=== PATIENT | male | born 1950 | race Caucasian/White ===

== ENCOUNTER 2019-02-27 09:36 | Inpatient (IN) | payer OTHER ==
[~2019-02-27] VITALS: Ht 165.1 cm; Wt 82.0 kg
[2019-02-27] VITALS (29 sets, daily range): BP systolic 78–161; BP diastolic 38–86; PULSE 56–90; RESP 12–21; Ht 165.1 cm; Wt 82.0 kg
[~2019-02-27 09:36] MED LIST: AMLO-147 PO; ASPI-831 PO; NEBI5TAB9 PO; PITA1TAB PO; TAMS0.4C2 PO; VALS1TAB82 PO; VANCOMYCIN 1 GM 250 ML IVPB SCH
[2019-02-27] MEDS ORDERED: NEBI10TA2 PO (10:30)
[2019-02-27] MEDS ORDERED: PITA4TAB PO (10:31)
[2019-02-27] MEDS ORDERED: IRBE1TAB35 PO (10:41)
[2019-02-27] MEDS ORDERED: ASPI81TA52 PO (10:42)
[2019-02-27] MEDS ORDERED: PANT40TA3 PO (10:42)
[2019-02-27] MEDS ORDERED: TAMS-14 PO (10:42)
[2019-02-27] MEDS ORDERED: CA CHLORIDE (GM) 10% 10 ML INJ ONE (11:44)
[2019-02-27] MEDS ORDERED: SURGIFOAM POWDER 1 GM KIT ONE (11:44)
[2019-02-27] MEDS ORDERED: THROMBIN (BOVINE) 5,000 UNIT VIAL TP ONE ×2 (11:44→15:07)
[2019-02-27] MEDS ORDERED: BUPIVACAINE 0.5%/EPI (SDV) 10 ML INJ ONE (11:44)
[2019-02-27] MEDS ORDERED: CEFAZOLIN 1 GM INJ ONE (11:44)
[2019-02-27] MEDS ORDERED: GELATIN SIZE 100 SPONGE ONE (11:44)
[2019-02-27] MEDS ORDERED: HEPARIN 1000 UNITS/ML 10 ML INJ ONE (11:45)
--- NOTE | 2019-02-27 11:52 | PREAC ---
Date/Time of Note Date/Time of Note DATE: 02/27/19 TIME: 11:49 Anesthesia Eval and Record Evaluation Time Pre-Procedure Interview DATE: 02/27/19 TIME: 11:49 Age 68 Sex male NPO: 8 hrs Preoperative diagnosis L3-L4-L5-S1 lumbar stenosis Planned procedure L3-L4-L5-S1 Anterior Lumbar decompression Past Medical History Past Medical History: Includes Cardio: HTN, Dyslipidemia GI: GERD, Obesity Surgery & Anesthesia Issues No known issue Meds Anticoagulation: Yes Beta Delilah within 24 hr: Yes Reported Medications Aspirin (Low Dose Aspirin) 81 Mg Tablet.dr, 81 MG PO DAILY, #30 TAB 02/27/19 Pantoprazole* (Protonix*) 40 Mg Tablet.dr, 40 MG PO DAILY, TAB 02/27/19 Tamsulosin Hcl* (Flomax*) 0.4 Mg Cap.er.24h, 0.4 MG PO DAILY, CAP 02/27/19 Irbesartan-Hydrochlorothiazide (Irbesartan-Hydrochlorothiazide) 300-12.5 Mg Tab, 1 EACH PO DAILY, TAB 02/27/19 Pitavastatin Calcium (Livalo) 4 Mg Tablet, 4 MG PO DAILY, TAB 02/27/19 Nebivolol Hcl* (Bystolic*) 10 Mg Tablet, 10 MG PO DAILY, #30 TAB 02/27/19 Discontinued Reported Medications Pitavastatin Calcium (Livalo) 1 Mg Tablet, 1 MG PO DAILY, TAB 12/31/15 Aspirin (Aspirin) 81 Mg Chew, 81 MG PO DAILY, TAB.CHEW 12/31/15 Valsartan-Hydrochlorothiazide (Valsartan-HCTZ) 320-25 Mg Tablet, 1 TAB PO DAILY, #30 TAB 12/31/15 Tamsulosin Hcl* (Tamsulosin Hcl*) 0.4 Mg Cap.er.24h, 0.4 MG PO HS, CAP 12/30/15 Nebivolol* (Bystolic*) 5 Mg Tab, 5 MG PO DAILY, #30 TAB 12/30/15 Amlodipine Besylate* (Amlodipine Besylate*) 10 Mg Tablet, 10 MG PO DAILY, #30 TAB 12/30/15 Current Medications Vancomycin HCl 250 ml @ 125 mls/hr PREOP IVPB Last administered on 02/27/19at 11:22; Admin Dose 125 MLS/HR; Start 5/13/19 at 06:00; Stop 02/27/19 at 16:00 Meds reviewed: Yes Allergies Coded Allergies: Penicillins (Verified Allergy, Unknown, SWELLING , 02/27/19) Allergies Reviewed: Yes Labs/Studies Labs Reviewed: Reviewed by anesthesiologist Blood Bank Test 02/27/19 11:05 Blood Product Summary Counts test: N/A Studies: ECG Pre-procedure Exam Last vitals Vital Signs Date Temp Pulse Resp B/P (MAP) Pulse Ox O2 O2 Flow FiO2 Time Delivery Rate 02/27/19 98.1 56 16 161/86 96 Room Air 11:35 (111) Airway: Adequate mouth opening, Adequate thyromental dist Mallampati: Mallampati II Teeth: Normal Lung: Normal Heart: Normal ASA Physical Status ASA physical status: 3 Emergency: None Planned Anesthetic General/MAC: ETT Planned Pain Management Parenteral pain med Pre-operative Attestations Prior to commencing anesthesia and surgery, the patient was re-evaluated, there was verification of: *The patient's identity *The results of appropriate recent lab work and preoperative vital signs *The above evaluation not changing prior to induction *Anesthetic plan, risk benefits, alternative and complications discussed with patient/family; questions answered; patient/family understands, accepts and wishes to proceed. JORI GARCIA MD February 27, 2019 11:52
[2019-02-27] MEDS ORDERED: MIDAZOLAM 1 MG/ML 2 ML INJ ONE (12:21)
[2019-02-27] MEDS ORDERED: VANCOMYCIN 1 GM INJ ONE (12:21)
[2019-02-27] MEDS ORDERED: ROCURONIUM 50 MG INJ ONE (12:24)
[2019-02-27] MEDS ORDERED: ETOMIDATE 20 MG INJ ONE (12:24)
[2019-02-27] MEDS ORDERED: LIDOCAINE 2% (SDV) 5 ML INJ ONE (12:24)
[2019-02-27] MEDS ORDERED: PROPOFOL 20 ML ONE (12:24)
--- NOTE | 2019-02-27 12:37 | HPN ---
Date/Time of Note Date/Time of Note DATE: 02/27/19 TIME: 12:37 Interval H&P Admission Note Pt. seen H&P reviewed: No system changes ERIKA LE MD February 27, 2019 12:37
[2019-02-27] MEDS ORDERED: BISACODYL 10 MG SUPP PR PRN (13:00)
[2019-02-27] MEDS ORDERED: ONDANSETRON 4 MG INJ IV PRN ×2 (13:00→17:30)
[2019-02-27] MEDS ORDERED: DIPHENHYDRAMINE 50 MG INJ IV PRN ×2 (13:00→17:30)
[2019-02-27] MEDS ORDERED: NALOXONE (0.4 MG/ML) INJ IV PRN (13:00)
[2019-02-27] MEDS ORDERED: hydrALAzine 20 MG INJ ONE (13:40)
[2019-02-27] MEDS ORDERED: PHENYLephrine 10 MG INJ ONE (15:49)
[2019-02-27] MEDS ORDERED: ONDANSETRON 4 MG INJ ONE (16:53)
[2019-02-27] MEDS ORDERED: METOCLOPRAMIDE 10 MG INJ ONE (16:53)
--- NOTE | 2019-02-27 17:28 | PAC ---
Date/Time of Note Date/Time of Note DATE: 02/27/19 TIME: 17:28 Post-Anesthesia Notes Post-Anesthesia Note Last documented vital signs Vital Signs Date Temp Pulse Resp B/P (MAP) Pulse Ox O2 O2 Flow FiO2 Time Delivery Rate 02/27/19 98.1 56 16 161/86 96 Room Air 11:35 (111) Activity: WNL Respiratory function: WNL Cardiovascular function: WNL Mental status: Baseline Pain reasonably controlled: Yes Hydration appropriate: Yes Nausea/Vomiting absent: Yes Comments BP:118/67, P:88, Spo2:100%, T:98,8 JORI GARCIA MD February 27, 2019 17:28
[2019-02-27] MEDS ORDERED: HYDROmorphONE 1 MG/5 ML IV SYRINGE IV PRN ×2 (17:30)
[2019-02-27] MEDS ORDERED: METOCLOPRAMIDE 10 MG INJ IV PRN (17:30)
[2019-02-27] MEDS ORDERED: LABETALOL HCL 20MG INJ IV PRN (17:30)
[2019-02-27] MEDS ORDERED: hydrALAzine 20 MG INJ IV PRN (17:30)
[2019-02-27] MEDS ORDERED: MEPERIDINE 25 MG INJ IV PRN (17:30)
[2019-02-27] MEDS: HYDROmorphONE 0.2 MG/ML PCA IV SCH (17:37)
--- NOTE | 2019-02-27 17:39 | SIPON ---
Date/Time of Note Date/Time of Note DATE: 02/27/19 TIME: 17:37 Operative Report Preoperative Diagnosis lumbar scoli Postoperative Diagnosis lumbar scoli Operation/Procedure Performed L3-S1 ALIF Surgeon see signature line catering administrative assistant co-surgeon: axel Anesthesia: general Estimated blood loss: 250 - 300 ml's Transfusion Required none Specimen disk Grafts/Implants cage and screws Complications none ERIKA LE MD February 27, 2019 17:39
[2019-02-27] MEDS: FENTAnyl 50 MCG/ML VIAL IV PRN ×4 (17:46→18:15)
[2019-02-27] MEDS ORDERED: ALBUMIN HUMAN 5% 250 ML IV ONE ×2 (18:00→18:30)
--- NOTE | 2019-02-27 19:02 | OPR ---
DATE OF OPERATION: 02/27/2019 PREOPERATIVE DIAGNOSES: 1. Degenerative lumbar scoliosis with disk disease, stenosis and radiculopathy at L3 to L4, L4 to L5 and L5 to S1. 2. Rudimentary S1 to S2 disk. POSTOPERATIVE DIAGNOSES: 1. Degenerative lumbar scoliosis with disk disease, stenosis and radiculopathy at L3 to L4, L4 to L5 and L5 to S1. 2. Rudimentary S1 to S2 disk. PROCEDURES: 1. Anterior lumbar interbody fusion at L3 to L4, L4 to L5, L5 to S1. 2. Placement of intervertebral mechanical device at L3 to L4, L4 to L5 and L5 to S1. 3. Anterior hardware placement at L3 to L4, L4 to L5 and L5 to S1. 4. Use of allograft. 5. Placement of NuShield device. 6. Intraoperative neuromonitoring. 7. Use of C-arm fluoroscopy with interpretation without radiologist present. PRIMARY SURGEON: Martinez Valencia MD COSURGEON: Valerio Son MD NEED FOR COSURGEON: A co-surgeon was required in order to retract the neurovascular elements. IMPLANTS: 1. Kyocera Tesera 38 x 30 mm footprint, 13 mm x 7-degree lordosis at L3 to L4, 11 mm x 7-degree lord osis at L4 to L5 and 11 mm with 12-degree lordosis at L5 to S1, 25 mm screws at all levels. 2. Biosphere. 3. NuShield. FINDINGS: Neuromonitoring at the start of the case revealed right L3 amplitude down 30%, right L4 do wn 40%, right L5 down 40%. At the end of the case, nerve signals returned to normal. The patient pardo s significant degenerative scoliosis with a rudimentary disk at the S1 to S2 level. ESTIMATED BLOOD LOSS: 200 mL. DRAINS: None. SPECIMENS: L3 to L4 and L5 to S1 disk. COMPLICATIONS OF PROCEDURES: None. ANESTHESIOLOGIST: Orestes Perea MD TYPE OF ANESTHESIA: General. INDICATIONS FOR PROCEDURE: This 68-year-old gentleman who had previously undergone lumbar decompress ion. He has a degenerative scoliosis with right leg pain and a foot drop. He had coronal deformity as well as sagittal deformity. Given this, it was recommended that he undergo the above procedure. Preoperatively, we discussed risks, benefits and alternatives. He understood and wished to proceed. DESCRIPTION OF PROCEDURE IN DETAIL: The patient was identified in the preoperative holding area, was given vancomycin antibiotics in the operating room where he was successfully placed under general an esthesia. Neuromonitoring leads were placed. Sequential compressive devices were applied. Lennon ca theter was placed. Remote intraoperative neuromonitoring was performed by Dr. Valles from 11:30 u ntil 16:50 to include SSEP, MEP and EMG performed by [employer]. The patient was placed on the operating table in supine position. All bony prominences were well padded. The abdomen was prepped , draped in usual sterile fashion. Dr. Son performed the approach to the spine which he will d ictate separately. Once we identified the spinal levels, I placed a bent spinal needle to confirm th e correct levels by taking the AP and lateral film. Once this was done, I performed radical diskecto mies at L3 to L4, L4 to L5 and L5 to S1 using curettes, Kerrison punches and pituitary rongeurs. I p repared the endplates at each level. Once this was done, I placed trial at each level and chose the appropriate graft height. I then took the titanium cage within which I placed allograft and I impact ed an intervertebral biomechanical device at L3 to L4, L4 to L5 and L5 to S1 to complete the anterior lumbar interbody fusion at all 3 levels. I then placed anterior plate with screws to complete the a nterior hardware at L3 to L4, L4 to L5 and L5 to S1. Once this was done, all nerve signals returned to normal. I was happy with the alignment of the spine. The wound was irrigated. The NuShield adolph ce was applied and Dr. Son proceeded to close the wound in layers, which he will dictate ngoc santamaria. Once the closure was completed, 4-quadrant abdominal x-rays were obtained to confirm that ther e was no foreign body left behind. Lap, sponge and instrument counts were correct x2. There were no apparent complications during the procedure. The patient will be admitted to the orthopedic adams for routine postoperative care to include pain co ntrol, neurovascular checks, antibiotics and physical therapy. We will obtain a postoperative CT sca n and the patient will return to the operating room on 02/28/2019 for stage II. Dictated By: MARTINEZ APONTE/PINKY Conf#: [id number] DID#: [id number] CC: BLAKE FLAHERTY MD;*End*
--- NOTE | 2019-02-27 19:23 | OPR ---
DATE OF OPERATION: PREOPERATIVE DIAGNOSIS: Degenerative disk disease, lumbosacral spine. POSTOPERATIVE DIAGNOSIS: Degenerative disk disease, lumbosacral spine. PROCEDURES: 1. Anterior retroperitoneal exposure, interbody fusion, L3 to L4. 2. Anterior retroperitoneal exposure, interbody fusion, L4 to L5. 3. Anterior retroperitoneal exposure, interbody fusion, L5 to S1. SURGEON: Lorelei Son MD ANESTHESIA: General. ESTIMATED BLOOD LOSS: 200 mL. COSURGEON: Martinez Valencia MD CONSENT: Risks, benefits, complications, alternative therapies, high-risk nature of the operation we re fully explained to the patient and the family and consent was obtained. OPERATIVE TECHNIQUE: The patient was placed in supine position, prepped and draped in usual sterile fashion. Time-out was called. I made a 10 cm incision, left paramedian longitudinal incision was ta tennille down to subcutaneous tissue which was then opened using electrocautery. Left anterior rectus she ath was opened in the direction of the wound. Posterior rectus sheath was incised 5 cm. Bookwalter retractor was placed retracting the bowel contents to the right, left rectus muscle to the left. I d issected left common iliac artery and vein, external iliac artery and vein. The lowest segmental art colette and vein on the left side were ligated using titanium clips. The left iliolumbar vein was ligate d using 2-0 silk suture and titanium clips. Exposure for L3 to L4, L4 to L5 and L5 to S1 was obtaine d by retracting the vena cava, aorta, left common iliac artery and vein to the right. We proceeded w ith diskectomy and placement of the new cage. Please refer to Dr. Valencia's dictation for the deta ils of that operation. After all x-rays were satisfactorily read by Dr. Valencia, needle count and sponge count was correct. The wound was irrigated using antibiotic solution. Posterior rectus sheat h was closed using 0 Vicryl suture in running fashion. Anterior rectus sheath was closed using a #1 Vicryl suture in a running fashion with interrupted sutures in the middle. The wound was irrigated a gain and closed in 2 layers of 2-0 Vicryl suture for subcutaneous, Steri-Strips for the skin. The pa tient tolerated procedure well. Dictated By: LORELEI SON MD FM/NTS Conf#: [id number] DID#: [id number] CC: MARTINEZ VALENCIA MD; BLAKE FLAHERTY MD;*[facility]*
[2019-02-27] MEDS: D5W-0.45 NACL + KCL 20 MEQ 1,000 ML IV SCH ×2 (22:28→22:37)
[2019-02-27] MEDS: VANCOMYCIN 1 GM (PMX) 250 ML IVPB SCH (22:29)
[2019-02-28] VITALS (21 sets, daily range): BP systolic 114–174; BP diastolic 49–98; PULSE 86–97; RESP 14–19
[2019-02-28] MEDS ORDERED: ROCURONIUM 50 MG INJ ONE (06:40)
[2019-02-28] MEDS ORDERED: PHENYLephrine (100 MCG/ML) 10ML SYG ONE (06:40)
[2019-02-28] MEDS ORDERED: LIDOCAINE 100 MG SYRINGE ONE (06:40)
[2019-02-28] MEDS ORDERED: SUCCINYLCHOLINE CHLORIDE 100 MG/5 ML SYG IV ONE (06:40)
[2019-02-28] MEDS ORDERED: PROPOFOL 20 ML ONE (06:40)
[2019-02-28] MEDS ORDERED: MIDAZOLAM 1 MG/ML 2 ML INJ ONE (06:41)
[2019-02-28] MEDS ORDERED: THROMBIN 20,000 UNIT VIAL ONE (06:45)
[2019-02-28] MEDS ORDERED: SURGIFOAM POWDER 1 GM KIT ONE (06:45)
[2019-02-28] MEDS ORDERED: CA CHLORIDE 10% 10 ML SYRINGE ONE (06:46)
[2019-02-28] MEDS ORDERED: BUPIVACAINE 0.5%/EPI (SDV) 30 ML INJ ONE ×2 (06:46)
[2019-02-28] MEDS ORDERED: BUPIVACAINE 0.25% (MPF) 30 ML INJ ONE (06:46)
[2019-02-28] MEDS ORDERED: POLYMYXIN/BACITRACIN 1L IRRIG ONE ×2 (06:46→07:10)
[2019-02-28] MEDS ORDERED: PROPOFOL 100 ML IV ONE (07:00)
[2019-02-28] MEDS ORDERED: THROMBIN 5000 UNIT VIAL ONE (07:00)
--- NOTE | 2019-02-28 07:00 | PREAC ---
Date/Time of Note Date/Time of Note DATE: 02/28/19 TIME: 06:53 Anesthesia Eval and Record Evaluation Time Pre-Procedure Interview DATE: 02/28/19 TIME: 06:53 Age 68 Sex male NPO: 8 hrs Preoperative diagnosis Lumbar DJD Planned procedure Posterior Lumbar Fusion Past Medical History Past Medical History: Includes Cardio: HTN Surgery & Anesthesia Issues No known issue Meds Anticoagulation: No Beta Delilah within 24 hr: Yes Reported Medications Aspirin (Low Dose Aspirin) 81 Mg Tablet.dr, 81 MG PO DAILY, #30 TAB 02/27/19 Pantoprazole* (Protonix*) 40 Mg Tablet.dr, 40 MG PO DAILY, TAB 02/27/19 Tamsulosin Hcl* (Flomax*) 0.4 Mg Cap.er.24h, 0.4 MG PO DAILY, CAP 02/27/19 Irbesartan-Hydrochlorothiazide (Irbesartan-Hydrochlorothiazide) 300-12.5 Mg Tab, 1 EACH PO DAILY, TAB 02/27/19 Pitavastatin Calcium (Livalo) 4 Mg Tablet, 4 MG PO DAILY, TAB 02/27/19 Nebivolol Hcl* (Bystolic*) 10 Mg Tablet, 10 MG PO DAILY, #30 TAB 02/27/19 Discontinued Reported Medications Pitavastatin Calcium (Livalo) 1 Mg Tablet, 1 MG PO DAILY, TAB 12/31/15 Aspirin (Aspirin) 81 Mg Chew, 81 MG PO DAILY, TAB.CHEW 12/31/15 Valsartan-Hydrochlorothiazide (Valsartan-HCTZ) 320-25 Mg Tablet, 1 TAB PO DAILY, #30 TAB 12/31/15 Tamsulosin Hcl* (Tamsulosin Hcl*) 0.4 Mg Cap.er.24h, 0.4 MG PO HS, CAP 12/30/15 Nebivolol* (Bystolic*) 5 Mg Tab, 5 MG PO DAILY, #30 TAB 12/30/15 Amlodipine Besylate* (Amlodipine Besylate*) 10 Mg Tablet, 10 MG PO DAILY, #30 TAB 12/30/15 Current Medications Potassium Chloride/Dextrose/ Sod Cl 1,000 ml @ 100 mls/hr Q10H IV Last administered on 02/27/19at 22:28; Admin Dose 100 MLS/HR; Start 02/27/19 at 12:37 Vancomycin HCl 250 ml @ 125 mls/hr Q12H IVPB Last administered on 02/27/19at 22:29; Admin Dose 125 MLS/HR; Start 02/27/19 at 23:00; Stop 02/28/19 at 12:59 Ondansetron HCl (Zofran Inj) 4 mg Q6H PRN IV NAUSEA/VOMITING; Start 02/27/19 at 13:00 Bisacodyl (Dulcolax Supp) 10 mg DAILY PRN RI .CONSTIPATION; Start 02/27/19 at 13:00 Diphenhydramine HCl (Benadryl) 25 mg Q6H PRN IV .ITCHING; Start 02/27/19 at 13:00 Naloxone HCl (Narcan) 0.2 mg Q2M PRN IV .RR 8 BREATHS/MIN OR LESS; Start 02/27/19 at 13:00 Hydromorphone HCl (Dilaudid ANALYTICS MANAGER) ANALYTICS MANAGER to be started in PACU Q4PCA IV Last administered on 02/27/19at 17:37; Admin Dose 6 MG; Start 02/27/19 at 13:00 Meds reviewed: Yes Allergies Coded Allergies: Penicillins (Verified Allergy, Unknown, SWELLING , 02/27/19) Allergies Reviewed: Yes Labs/Studies Labs Reviewed: Reviewed by anesthesiologist Result Diagram: 02/28/19 0507 02/28/19 0507 Laboratory Tests 02/28/19 05:07 Blood Bank Test 02/27/19 11:03 Antibody Screen NEGATIVE Blood Product Summary Counts Blood Type O POSITIVE Crossmatch Red Blood Cells test: N/A Pre-procedure Exam Last vitals Vital Signs Date Temp Pulse Resp B/P (MAP) Pulse Ox O2 O2 Flow FiO2 Time Delivery Rate 02/28/19 99.0 96 18 120/62 97 Nasal 2.0 06:25 (81) Cannula Airway: Adequate mouth opening Mallampati: Mallampati II Teeth: Normal Lung: Normal Heart: Normal ASA Physical Status ASA physical status: 2 Emergency: None Planned Anesthetic General/MAC: ETT Pre-operative Attestations Prior to commencing anesthesia and surgery, the patient was re-evaluated, there was verification of: *The patient's identity *The results of appropriate recent lab work and preoperative vital signs *The above evaluation not changing prior to induction *Anesthetic plan, risk benefits, alternative and complications discussed with patient/family; questions answered; patient/family understands, accepts and wishes to proceed. TUSHAR URBANO MD February 28, 2019 07:00
[2019-02-28] MEDS ORDERED: VANCOMYCIN 1 GM (PMX) 250 ML ONE (07:51)
[2019-02-28] MEDS: D5W-0.45 NACL + KCL 20 MEQ 1,000 ML IV SCH (08:37)
[2019-02-28] MEDS ORDERED: D5W-0.45 NACL + KCL 20 MEQ 1,000 ML IV SCH (10:52)
--- NOTE | 2019-02-28 10:52 | SIPON ---
Date/Time of Note Date/Time of Note DATE: 02/28/19 TIME: 10:50 Operative Report Preoperative Diagnosis Degenerative scoliosis Postoperative Diagnosis Degenerative scoliosis Operation/Procedure Performed Lumbar fusion Surgeon see signature line assistant shift supervisor none Anesthesia: general Estimated blood loss: 10 - 50 ml's Transfusion Required none Specimen None Grafts/Implants RTI screws Complications none ERIKA LE MD February 28, 2019 10:51
--- NOTE | 2019-02-28 10:52 | PAC ---
Date/Time of Note Date/Time of Note DATE: 02/28/19 TIME: 10:52 Post-Anesthesia Notes Post-Anesthesia Note Last documented vital signs Vital Signs Date Temp Pulse Resp B/P (MAP) Pulse Ox O2 O2 Flow FiO2 Time Delivery Rate 02/28/19 99.0 96 18 120/62 97 Nasal 2.0 06:25 (81) Cannula Activity: WNL Respiratory function: WNL Cardiovascular function: WNL Mental status: Baseline Pain reasonably controlled: Yes Hydration appropriate: Yes Nausea/Vomiting absent: Yes TUSHAR URBANO MD February 28, 2019 10:52
[2019-02-28] MEDS ORDERED: DIPHENHYDRAMINE 50 MG INJ IV PRN (11:00)
[2019-02-28] MEDS ORDERED: CEPASTAT LOZENGE MT PRN (11:00)
[2019-02-28] MEDS ORDERED: HYDROmorphONE 0.2 MG/ML PCA IV SCH (11:00)
[2019-02-28] MEDS ORDERED: NALOXONE (0.4 MG/ML) INJ IV PRN (11:00)
[2019-02-28] MEDS ORDERED: ONDANSETRON 4 MG INJ IV PRN ×2 (11:00)
[2019-02-28] MEDS ORDERED: HYDROmorphONE 1 MG/5 ML IV SYRINGE IV PRN (11:00)
[2019-02-28] MEDS ORDERED: BISACODYL 10 MG SUPP PR PRN (11:00)
[2019-02-28] MEDS ORDERED: CYCLOBENZAPRINE 10 MG TAB PO PRN (11:00)
[2019-02-28] MEDS ORDERED: DIPHENHYDRAMINE 25 MG CAP PO PRN (11:00)
[2019-02-28] MEDS ORDERED: KETOROLAC 30 MG INJ IV PRN (11:00)
[2019-02-28] MEDS: VANCOMYCIN 1 GM (PMX) 250 ML IVPB SCH ×2 (11:00→18:17)
[2019-02-28] MEDS ORDERED: ACETAMINOPHEN 325 MG TAB PO PRN (11:00)
[2019-02-28] MEDS: HYDROmorphONE 0.2 MG/ML PCA IV SCH (11:29)
[2019-02-28] MEDS ORDERED: NON-FORMULARY/PATIENT OWN MED (Irbesartan-Hydrochlorothiazide 1 EACH) PO SCH (13:30)
--- NOTE | 2019-02-28 13:34 | OPR ---
DATE OF OPERATION: 02/28/2019 PREOPERATIVE DIAGNOSIS: Degenerative lumbar scoliosis and stenosis status post ALIF, L3-L4, L4-L5, L 5-S1 with radiculopathy. POSTOPERATIVE DIAGNOSIS: Degenerative lumbar scoliosis and stenosis status post ALIF, L3-L4, L4-L5, L5-S1 with radiculopathy. OPERATION PERFORMED: 1. Posterior pedicle screw instrumentation at L3-L4 and L5-S1 bilaterally. 2. Posterolateral fusion L3-L4, L4-L5, L5-S1 bilaterally. 3. Use of C-arm fluoroscopy without radiologist present. 4. Use of navigation for placement of pedicle screws. 5. Intraoperative neuromonitoring. 6. Use of allograft. PRIMARY SURGEON: Matrinez Valencia MD ENVIRONMENTAL ADVISER: None. IMPLANTS: 1. RTI streamline MIS pedicle screws, 6.5 x 50 mm at L3-4-5 and 6.5 x 45 mm at S1 bilaterally. 2. Biosphere. FINDINGS: Neuromonitoring at start and at the end of the case were normal. The patient had a scolio tic curvature. ESTIMATED BLOOD LOSS: 50 mL. DRAINS: None. SPECIMENS: None. COMPLICATIONS OF PROCEDURES: None. ANESTHESIOLOGIST:. Chris Lockett MD TYPE OF ANESTHESIA: General. INDICATIONS FOR PROCEDURE: This is a 68-year-old gentleman who had previously undergone lumbar decom pression several years ago. He has degenerative scoliosis on 02/27/2019 underwent anterior lumbar in terbody fusion at L3-L4, L4-L5 and L5-S1 now presents for stage II. Given that he had significant im provement in the foot drop on the right side, I elected not to perform an open decompression during s tage II. This was discussed with the patient preoperatively. 1. The patient understood the risks and benefits and wished to proceed. DESCRIPTION OF PROCEDURE IN DETAIL: The patient was identified in the preoperative holding area, giv en vancomycin antibiotic, taken to the operating room, where he was successfully placed under general anesthesia. Neuromonitoring leads were placed, sequential compressive devices were applied. Intrao perative neuromonitoring was performed by Dr. Valles from 0615 hours to 1035 hours to include SSEP , MEP, and EMG performed by [employer]. The patient was placed in the operative table in prone position over a Luis Fernando frame. All bony prominences were padded. The back was then prepped and drap ed in the usual sterile fashion. I identified the incision site which I anesthetized with Marcaine a nd epinephrine. I placed two Schanz pins into the right posterior superior iliac spine and placed th e navigation jig attached to this. I then made parasagittal incisions from L3 to the sacrum. I then utilized both the C-arm fluoroscope and the navigation system for placement of the pedicle screws. Under navigation system, I identified the pedicle screws and used a drill to drill the hole for the p edicle screws. Once this was done, I placed bilateral pedicle screws at L3., L4, L5 and S1. Once th e pedicle screws were in place, I stimulated each of the screws and there was no evidence of cortical breach. I then passed a kanu percutaneously. I then passed a kanu, 80 mm on left, 85 mm on the right . I then placed the appropriate set screws and tightened the set screws per research test engine operator's specifica tions. The last screw to be tightened was the right S1 and upon doing so the tip of the screwdriver broke within the set screw. I removed the extended tabs bilaterally and examined the set screw at th is time. It appeared to be secure and therefore, I elected not to remove the tip of the screwdriver. I was concerned this would cause more damage. I then irrigated the wounds. I prepared the postero lateral gutter and took the allograft which I placed posterolaterally for posterolateral fusion bilat erally at L3-4, L4-5 and L5-S1. I then took final AP and lateral images and I was happy with the amrit cement of the hardware and alignment of the spine. The wound was irrigated and closed in layers. I closed deep fascia with #1 Vicryl stitch. I closed subcutaneous tissue with 2-0 Vicryl stitch. I th en placed a 4-0 Monocryl stitch over the Schanz pins. Dermabond was then applied. The patient was a wakened from anesthesia and taken to the recovery room in stable condition. Lap, sponge and instrume nt counts were correct x2. There were no apparent complications during the procedure. The patient will be admitted to the orthopedic adams for routine postoperative care to include pain co ntrol, generator checks, antibiotics, and physical therapy. Dictated By: MARTINEZ APONTE/PINKY Conf#: [id number] [facility]#: [id number]
[2019-02-28] MEDS: NEBIVOLOL 5 MG TAB PO SCH (13:53)
[2019-02-28] MEDS: PANTOPRAZOLE (EC) 40 MG TAB PO SCH (13:54)
[2019-02-28] MEDS ORDERED: MAGNESIUM SULFATE 2 GM/50 ML 50 ML IVPB ONE (15:00)
--- NOTE | 2019-02-28 15:22 | CONS ---
DATE OF ADMISSION: 02/27/2019 DATE OF CONSULTATION: TYPE OF CONSULTATION: Medical. Thank you, Dr. Valencia for asking me to participate in medical management of this patient. REASON FOR CONSULTATION: To manage the patient's hypertension, hyperlipidemia, prostatism. HISTORY OF PRESENT ILLNESS: This 68-year-old man was injured at work in 2015. Subsequent to his back injury, he underwent an L3 to S1 central decompressive laminectomy with right L4 to L5 microdiskectomy. That was on 12/31/2015. He was having right leg pain which improved after the surgery. However, he continued to have numbness and weakness in the right leg with right foot drop. He decided to undergo repeat surgery by Dr. Valencia which was done yesterday and today a 2-stage procedure. He had a lumbar fusion both anterior and posterior approach. The patient is now postop. He is back on the orthopedic floor and is awake and alert. He does have some low back pain which is being treated and seems under control. PAST MEDICAL HISTORY: Hypertension, hyperlipidemia, history of DVT in R leg after R knee arthroscopy in March ? April 2017 .He subsequently had a pulmonary embolism and was on Xarelto for 6 months . CURRENT MEDICATIONS: Include: 1. Tamsulosin 0.4 mg a day. 2. Pantoprazole 40 mg a day. 3. Livalo 4 mg a day. 4. Bystolic 10 mg a day. 5. Aspirin which was discontinued 1 week preoperatively. 6. Irbesartan and hydrochlorothiazide 300/12.5. PAST SURGICAL HISTORY: L3 to S1 central decompressive laminectomy with right L4 to L5 microdiskectomy, right knee surgery. SOCIAL HISTORY: He does not smoke nor drink alcohol. ALLERGIES: HE IS ALLERGIC TO PENICILLIN. PHYSICAL EXAMINATION: GENERAL: At this time reveals a well-developed man in no apparent distress. VITAL SIGNS: Pulse of 86, respirations 16, blood pressure 152/68, O2 saturation of 99% on 2-liter nasal cannula. HEENT: Head is normocephalic. Eyes: Extraocular muscles are intact. Nose and mouth are normal. NECK: Supple. No neck vein distention. LUNGS: Clear to auscultation. HEART: Regular rhythm. No murmurs, gallops or rubs. ABDOMEN: Soft. There is a fresh wound over the left anterior abdomen with fresh bandage. There is no drainage or bleeding. EXTREMITIES: No peripheral edema. The patient is able to move his right foot, previously had a right foot drop. IMPRESSION: This patient is doing well after a 2-stage surgery completed today. He is awake and alert. His abdominal and back pain seemed to be controlled on current medication. I will manage the patient's hypertension, hyperlipidemia, prostatism. He has a h/o of DVT of R leg and pulmonary embolism .This occurred after a R knee surgery in 2017 . I would consider a course of anticoagulants when it is hemodynamically safe from orthopedic standpoint . Acute renal failure due to dehydration , will hold ARB and diuretic for now . PLAN: 1. Resume some routine medications. 2. Check labs in the morning. 3. Postop anterior, posterior lumbar spine surgery protocol . 4. I will follow the patient along with you. Dictated By: LARA SUAZO MD ND/NTS Conf#: [id number] DID#: [id number] CC: BLAKE FLAHERTY MD; ERIKA VALENCIA MD;*End* MTDD
[2019-02-28] MEDS: SOD CHLORIDE 0.45% 1,000 ML IV SCH (15:26)
[2019-02-28] MEDS: DOCUSATE SODIUM 100 MG CAP PO SCH (20:23)
[2019-02-28] MEDS: TAMSULOSIN (SR) 0.4 MG CAP PO SCH (20:23)
[2019-03-01 00:20] VITALS: BP 123/59; PULSE 94; RESP 18
[2019-03-01] MEDS: SOD CHLORIDE 0.45% 1,000 ML IV SCH ×4 (03:16→21:27)
[2019-03-01] MEDS: VANCOMYCIN 1 GM (PMX) 250 ML IVPB SCH (05:51)
[2019-03-01 07:34] VITALS: BP 109/67; PULSE 80; RESP 18
--- NOTE | 2019-03-01 08:29 | CONS ---
Assessment/Plan Assessment/Plan Hospital Course (Demo Recall) 1. Rosas is now 1 day postop a two-stage anterior posterior lumbar spine surgery and fusion. He is awake and alert. He has coughed up some blood-tinged sputum this morning. He had a low-grade fever to 100.3 last evening. I will order a chest x-ray and some urine studies. 2. His blood pressure and laboratory tests are acceptable. 3. 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 I would consider starting him on antico agulants for thromboembolism prevention when it is hemodynamically safe from an orthopedic standpoint. Consultation Date/Type/Reason Admit Date/Time February 27, 2019 at 09:36 Initial Consult Date Date/Time of Note DATE: 03/01/19 TIME: 08:22 24 HR Interval Summary Free Text/Dictation Rosas is awake and alert this morning. He has coughed up some blood-tinged mucus. He denies shortness of breath. He did have a low-grade fever last evening of 100.3. Constitutional: no complaints, improved Exam/Review of Systems Exam Vitals Vital Signs Date Temp Pulse Resp B/P (MAP) Pulse Ox O2 O2 Flow FiO2 Time Delivery Rate 03/01/19 98.3 80 18 109/67 96 07:34 (81) 03/01/19 Nasal 2.0 00:20 Cannula Intake and Output 02/28/19 02/28/19 03/01/19 1515:00 23:00 07:00 IntakeIntake Total 2200 ml 850 ml 1250 ml OutputOutput Total 350 ml 1200 ml BalanceBalance 1850 ml 850 ml 50 ml Constitutional: alert, oriented, well developed Neck: supple, non-tender Respiratory: clear to auscultation, normal air movement Cardiovascular: regular rate and rhythm Gastrointestinal: soft Musculoskeletal: nl extremities to inspection Results Result Diagram: 03/01/19 0459 03/01/19 0459 Results 24hrs Laboratory Tests Test 03/01/19 04:59 03/01/19 07:28 White Blood Count 5.9 Red Blood Count 3.98 L Hemoglobin 11.3 L Hematocrit 35.1 L Mean Corpuscular Volume 88.2 Mean Corpuscular Hemoglobin 28.4 L Mean Corpuscular Hemoglobin Concent 32.2 Red Cell Distribution Width 14.9 H Platelet Count 119 L Mean Platelet Volume 10.9 H Immature Granulocytes % 0.300 Neutrophils % 78.5 H Lymphocytes % 11.7 L Monocytes % 8.5 Eosinophils % 0.7 Basophils % 0.3 Nucleated Red Blood Cells % 0.0 Immature Granulocytes # 0.020 Neutrophils # 4.6 Lymphocytes # 0.7 L Monocytes # 0.5 Eosinophils # 0.0 Basophils # 0.0 Nucleated Red Blood Cells # 0.0 Sodium Level 136 Potassium Level 4.2 Chloride Level 103 Carbon Dioxide Level 30 Anion Gap 3 L Blood Urea Nitrogen 15 Creatinine 1.52 H Est Glomerular Filtrat Rate mL/min 46 L Glucose Level 105 Calcium Level 7.6 L Magnesium Level 2.1 Lab Scanned Report REFERENCE LAB Medications Medication Current Medications Ondansetron HCl (Zofran Inj) 4 mg Q6H PRN IV NAUSEA/VOMITING Last administered on 02/28/19at 11:51; Admin Dose 4 MG; Start 02/27/19 at 13:00 Bisacodyl (Dulcolax Supp) 10 mg DAILY PRN CO .CONSTIPATION; Start 02/27/19 at 13:00 Naloxone HCl (Narcan) 0.2 mg Q2M PRN IV .RR 8 BREATHS/MIN OR LESS; Start 02/27/19 at 13:00 Hydromorphone HCl (Dilaudid BUTTON BREAKER) BUTTON BREAKER to be started in PACU Q4PCA IV Last administered on 02/28/19at 11:29; Admin Dose 6 MG; Start 02/27/19 at 13:00 Acetaminophen/ Hydrocodone Bitart ([place] (10/325)) 1 tab Q4H PRN PO .PAIN 1-5; Start 03/02/19 at 14:00 Acetaminophen/ Hydrocodone Bitart ([place] (10/325)) 2 tab Q4H PRN PO .PAIN 6-10; Start 03/02/19 at 14:00 Hydromorphone HCl (Dilaudid) 0.2 mg Q1H PRN IV .BREAKTHROUGH PAIN; Start 03/02/19 at 10:00 Ondansetron HCl (Zofran Inj) 4 mg Q6H PRN IV NAUSEA/VOMITING; Start 02/28/19 at 11:00 Bisacodyl (Dulcolax Supp) 10 mg DAILY PRN CO .CONSTIPATION; Start 02/28/19 at 11:00 Docusate Sodium (Colace) 100 mg BID PO Last administered on 02/28/19at 20:23; Admin Dose 100 MG; Start 02/28/19 at 21:00 Magnesium Hydroxide (Milk Of Mag) 30 ml HS PRN PO .CONSTIPATION/DYSPEPSIA; St art 02/28/19 at 11:00 Acetaminophen (Tylenol Tab) 650 mg Q4H PRN PO CHAVEZ OR TEMP GREATER THAN 101.3F; Start 02/28/19 at 11:00 Cyclobenzaprine HCl (Flexeril) 10 mg TID PRN PO .MUSCLE SPASMS; Start 02/28/19 at 11:00 Phenol (Cepastat Lozenge) 1 lozenge PRN PRN MT .SORE THROAT; Start 02/28/19 at 11:00 Diphenhydramine HCl (Benadryl) 25 mg Q6H PRN PO .ITCHING; Start 02/28/19 at 11:00 Diphenhydramine HCl (Benadryl) 25 mg Q6H PRN IV .ITCHING; Start 02/28/19 at 11:00 Naloxone HCl (Narcan) 0.2 mg Q2M PRN IV .RR 8 BREATHS/MIN OR LESS; Start 02/28/19 at 11:00 Hydromorphone HCl (Dilaudid BUTTON BREAKER) BUTTON BREAKER to be started in PACU Q4PCA IV ; Start 02/28/19 at 11:00; Stop 03/02/19 at 10:00 Miscellaneous Information 1. Hold BUTTON BREAKER at 1,000... BUTTON BREAKER IV ; Start 02/28/19 at 11:00 Acetaminophen/ Hydrocodone Bitart ([place] (10/325)) 2 tab ONCE ONCE PO ; Start 03/02/19 at 09:30; Stop 03/02/19 at 09:31 Miscellaneous Medication (Bystolic) 10 mg DAILY PO Last administered on 02/28/19at 13:53; Admin Dose 10 MG; Start 02/28/19 at 13:30 Pantoprazole (Protonix Tab) 40 mg DAILY PO Last administered on 02/28/19at 13:54; Admin Dose 40 MG; Start 02/28/19 at 13:30 Tamsulosin HCl (Flomax) 0.4 mg HS PO Last administered on 02/28/19at 20:23; Admin Dose 0.4 MG; Start 02/28/19 at 21:00 Atorvastatin Calcium (Lipitor) 40 mg DAILY@2100 PO ; Start 03/01/19 at 21:00 Sodium Chloride 1,000 ml @ 125 mls/hr Q8H IV Last administered on 03/01/19at 03:16; Admin Dose 125 MLS/HR; Start 02/28/19 at 14:00 LARA SUAZO MD March 01, 2019 08:29
[2019-03-01] MEDS: DOCUSATE SODIUM 100 MG CAP PO SCH ×2 (08:51→21:12)
[2019-03-01] MEDS: NEBIVOLOL 5 MG TAB PO SCH (08:51)
[2019-03-01] MEDS: PANTOPRAZOLE (EC) 40 MG TAB PO SCH (08:51)
--- NOTE | 2019-03-01 09:47 | PN ---
Date/Time of Note Date/Time of Note DATE: 03/01/19 TIME: 09:45 Assessment/Plan Lines/Catheters IV Catheter Type (from Nrsg): Peripheral IV Lennon in Place (from Nrsg): Yes Assessment/Plan Assessment/Plan Patient is doing well postoperatively. Continue with physical therapy and pain control. Would prefer to use mechanical prophylaxis for now. Subjective 24 Hr Interval Summary Complains of low back pain Exam/Review of Systems Vital Signs Vitals Vital Signs Date Temp Pulse Resp B/P (MAP) Pulse Ox O2 O2 Flow FiO2 Time Delivery Rate 03/01/19 98.3 80 18 109/67 96 07:34 (81) 03/01/19 Nasal 2.0 00:20 Cannula Intake and Output 02/28/19 02/28/19 03/01/19 1414:59 22:59 06:59 IntakeIntake Total 2200 ml 850 ml 1250 ml OutputOutput Total 350 ml 1200 ml BalanceBalance 1850 ml 850 ml 50 ml Exam Free Text/Dictation Improved strength compared to preop Results Result Diagram: 03/01/19 0459 03/01/19 0459 ERIKA LE MD March 01, 2019 09:47
[2019-03-01] MEDS: HYDROmorphONE 0.2 MG/ML PCA IV SCH (09:58)
--- NOTE | 2019-03-01 10:27 | PREOPHP ---
DATE OF ADMISSION: 02/27/2019 Thank you very much, Dr. Valencia, for asking me to see the patient in medical consultation. INTRODUCTION: This is a 76-year-old male scheduled for anterior lumbar interbody fusion due to sever e degenerative disk disease, spinal stenosis, herniated disk, right drop foot. HISTORY OF PRESENT ILLNESS: Apparently the patient sustained an injury at work more than 3 years ago . At that time, the patient developed a right drop foot. The patient underwent laminectomy. Postop eratively, the patient has had multiple treatments including physical therapy, injection, braces. Ralph quinteros's condition continued to deteriorate. Complains of severe pain, bilateral leg numbness, tingli ng. He was scheduled for anterior fusion. PAST MEDICAL HISTORY: 1. History of hypertension. 2. History of hyperlipidemia. 3. History of moderate obesity. 4. History of transient mild renal failure. 5. History of benign prostatic hypertrophy. 6. History of right lower extremity deep venous thrombosis in March of 2018. PAST SURGICAL HISTORY: Significant for lumbar spine laminectomy. MEDICATIONS: 1. Aspirin 81 mg daily. 2. Avapro 300 mg daily. 3. Hydrochlorothiazide 12.5 mg daily. 4. Bystolic 10 mg daily. 5. Prilosec 40 mg daily. 6. Flomax 0.4 mg at bedtime. 7. Livalo 4 mg at bedtime. SOCIAL HISTORY: The patient does not have drug allergies. SOCIAL HISTORY: Negative history of tobacco abuse. He used to drink alcohol socially. He is single . No children. FAMILY HISTORY: Mother at age of 83 from heart failure. Father at age of 86 from complica tions of Alzheimer dementia. The patient has 2 sisters, both have high blood pressure. The patient also has 1 brother who is in good health. REVIEW OF SYSTEMS: GENERAL: Denies fever, chills, gaining or losing weight. EYES: Negative for double blurred vision, eye pain. ENT: Negative for sore throat, ear pain, and congestion. CARDIOVASCULAR: Negative for chest pain, PND, palpitation. RESPIRATORY: Negative for shortness of breath, cough, hemoptysis. GASTROINTESTINAL: Negative for nausea, vomiting, constipation, diarrhea, abdominal pain. GENITOURINARY: Negative for dysuria, frequency, nocturia. ENDOCRINE: History of benign prostatic hypertrophy. HEMATOLOGY: Negative history of easy bruising or bleeding. NEUROLOGIC: Patient denies any history of seizures or stroke. The patient has right lower extremity weakness due to previous injuries and surgery. PHYSICAL EXAMINATION: GENERAL: Well-developed, well-nourished male in no acute distress. VITAL SIGNS: Temperature 97.7, heart rate 61, respiratory rate 16, blood pressure 120/78. HEENT: Atraumatic, normocephalic. SKIN: No rash, no lesion, no bruises, no hematomas. NECK: Supple, no lymphadenopathy, no thyromegaly. Negative for jugular venous distention. Negative for carotid bruits. HEENT: Pupils equal, round, reactive to light and accommodation. Extraocular movement intact. No p edal edema. EARS: Normal tympanic membranes bilaterally. NOSE: Clear. THROAT: No erythema, no exudate. HEART: Regular rate and rhythm, normal S1, normal S2. No S3, no S4, no murmur. No gallops. LUNGS: Clear to auscultation bilaterally and no rash. No wheeze. ABDOMEN: Soft, nontender, nondistended, positive for bowel sounds. Negative hepatosplenomegaly. EXTREMITIES: No cyanosis, clubbing, edema. Patient has significant atrophy of the right calf and co ntracture of the right foot and ankle. NEUROLOGICAL: Alert and oriented x3. Cranial nerves II through XII grossly intact. The patient has a right lower extremity weakness, decreased tactile sensory. The patient has unstable gait due to w eakness in the right lower extremity. He has been walking with a cane. LABORATORY DATA: Showed chest x-ray: No cardiomegaly, no infiltrates. WBC count 4.8, hemoglobin 15 .1, hematocrit 48.7, platelets 190. PT 11.7. PTT 26.3. INR 0.97, sodium 139, potassium 4.5, chlori de 99, bicarbonate 29, BUN 21, creatinine 1.2, blood sugar 119, AST 21, ALT 27, alkaline phosphatase 77, total bilirubin 0.7, total cholesterol 196, LDL 107, HDL 59. The patient's hemoglobin A1c was 6. 6. Urinalysis negative, WBC, negative. RBC negative. EKG showed sinus rhythm at rate of 60, no acu te ST changes. ASSESSMENT: 1. A 68-year-old male with history of lumbar spine injury, history of right drop foot and laminectom y, at this time scheduled for anterior lumbar spine fusion. 2. History of hypertension. 3. History of hyperlipidemia. 4. History of transient mild renal failure with normal renal function now. 5. No history of benign prostatic hypertrophy. 6. History of pulmonary embolism and deep venous thrombosis. 7. Mild diabetes mellitus, newly diagnosed. RECOMMENDATIONS: [employer], patient possesses mild to moderate risk for periopera tive cardiovascular complications. The patient was advised to stop taking aspirin and nonsteroidal a nti-inflammatory medications 7 days prior to the surgery. Other than that, the patient continued to take all his medications including night prior to the surgery. Patient had to be monitored postopera tively carefully for possible DVT. Earlier DVT prophylaxis has to be undertaken. The patient also w as diagnosed with mild diabetes mellitus with a hemoglobin A1c of 6.6. It is a new finding. There i s no reason to postpone surgery due to the slight elevation of blood sugar. Postoperative the patien t's blood sugar has to be monitored, as possible sliding scale. Follow up with me or any primary car e physician at [facility] for further management of diabetes mellitus. At this time, patient m edically cleared for upcoming surgery. Dictated by eSmaj Kearns MD Dictated By: ERIKA APONTE/PINKY Conf#: [id number] DID#: [id number] CC: ERIKA VALENCIA MD;*EndCC*
[2019-03-01 16:19] VITALS: BP 123/60; PULSE 80
[2019-03-01 20:01] VITALS: BP 132/68; PULSE 78; RESP 20
[2019-03-01] MEDS: ATORVASTATIN 40 MG TAB PO SCH (21:12)
[2019-03-01] MEDS: TAMSULOSIN (SR) 0.4 MG CAP PO SCH (21:13)
[2019-03-02 01:24] VITALS: BP 128/74; PULSE 77
[2019-03-02] MEDS: SOD CHLORIDE 0.45% 1,000 ML IV SCH ×3 (05:07→22:00)
[2019-03-02 07:35] VITALS: BP 136/71; PULSE 75; RESP 18
--- NOTE | 2019-03-02 08:02 | PN ---
Date/Time of Note Date/Time of Note DATE: 03/02/19 TIME: 08:01 Assessment/Plan Lines/Catheters IV Catheter Type (from Nrsg): Peripheral IV Lennon in Place (from Nrsg): Yes Assessment/Plan Assessment/Plan doing well. right shoulder pain likely due to positioning. will observe and if not improving get MRI as an outpatient. may start anticoag. d/c planning. Subjective 24 Hr Interval Summary c/o right shoulder pain Exam/Review of Systems Vital Signs Vitals Vital Signs Date Temp Pulse Resp B/P (MAP) Pulse Ox O2 O2 Flow FiO2 Time Delivery Rate 03/02/19 98.2 75 18 136/71 98 07:35 (92) 03/01/19 Nasal 20:01 Cannula 03/01/19 2.0 00:20 Intake and Output 03/01/19 03/01/19 03/02/19 1515:00 23:00 07:00 IntakeIntake Total 1000 ml 2060 ml 1900 ml OutputOutput Total 300 ml 2600 ml BalanceBalance 700 ml 2060 ml -700 ml Exam Free Text/Dictation right RTC pain and weakness Results Result Diagram: 03/02/19 0431 03/02/19 0431 ERIKA LE MD March 02, 2019 08:02
[2019-03-02] MEDS: PANTOPRAZOLE (EC) 40 MG TAB PO SCH (09:06)
[2019-03-02] MEDS: DOCUSATE SODIUM 100 MG CAP PO SCH ×2 (09:06→20:54)
[2019-03-02] MEDS: NEBIVOLOL 5 MG TAB PO SCH (09:06)
[2019-03-02] MEDS: MAGNESIUM HYDROXIDE 30ML CUP PO PRN ×2 (09:09→10:54)
--- NOTE | 2019-03-02 09:21 | CONS ---
Assessment/Plan Assessment/Plan Hospital Course (Demo Recall) 1. Rosas is now 2 days postop a two-stage anterior posterior lumbar spine surgery and fusion. He is awake and alert. He has coughed up some blood-tinged sputum yesterday morning. He has no cough today. He has been afebrile the last 24 hours. I will order a chest x-ray and some urine studies today. He could potentially be discharged today if cleared by physical therapy. 2. His blood pressure and laboratory tests are acceptable. 3. 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 I would consider starting him on anti coagulants for thromboembolism prevention when it is hemodynamically safe from an orthopedic standpoint. He could take Xarelto 10 mg a day for 1 month. Consultation Date/Type/Reason Admit Date/Time February 27, 2019 at 09:36 Initial Consult Date Date/Time of Note DATE: 03/02/19 TIME: 09:17 24 HR Interval Summary Free Text/Dictation He is now 2 days postop a two-stage lumbar spine procedure. Rosas is feeling better today. He has no complaints. He was a afebrile over the past 24 hours. Constitutional: no complaints, improved Exam/Review of Systems Exam Vitals Vital Signs Date Temp Pulse Resp B/P (MAP) Pulse Ox O2 O2 Flow FiO2 Time Delivery Rate 03/02/19 98.2 75 18 136/71 98 07:35 (92) 03/01/19 Nasal 20:01 Cannula 03/01/19 2.0 00:20 Intake and Output 03/01/19 03/01/19 03/02/19 1414:59 22:59 06:59 IntakeIntake Total 1000 ml 2060 ml 1900 ml OutputOutput Total 300 ml 2600 ml BalanceBalance 700 ml 2060 ml -700 ml Constitutional: alert, oriented, well developed Respiratory: clear to auscultation, normal air movement Cardiovascular: regular rate and rhythm Gastrointestinal: soft, non-tender Musculoskeletal: nl extremities to inspection Results Result Diagram: 03/02/19 0431 03/02/19 0431 Results 24hrs Laboratory Tests Test 03/02/19 04:31 White Blood Count 6.5 Red Blood Count 3.77 L Hemoglobin 10.6 L Hematocrit 32.8 L Mean Corpuscular Volume 87.0 Mean Corpuscular Hemoglobin 28.1 L Mean Corpuscular Hemoglobin Concent 32.3 Red Cell Distribution Width 14.6 H Platelet Count 111 L Mean Platelet Volume 11.0 H Immature Granulocytes % 0.500 H Neutrophils % 81.6 H Lymphocytes % 9.9 L Monocytes % 7.4 Eosinophils % 0.6 Basophils % 0.0 Nucleated Red Blood Cells % 0.0 Immature Granulocytes # 0.030 Neutrophils # 5.3 Lymphocytes # 0.6 L Monocytes # 0.5 Eosinophils # 0.0 Basophils # 0.0 Nucleated Red Blood Cells # 0.0 Sodium Level 136 Potassium Level 3.9 Chloride Level 104 Carbon Dioxide Level 30 Anion Gap 2 L Blood Urea Nitrogen 15 Creatinine 1.45 H Est Glomerular Filtrat Rate mL/min 48 L Glucose Level 142 Calcium Level 7.8 L Magnesium Level 2.3 Medications Medication Current Medications Ondansetron HCl (Zofran Inj) 4 mg Q6H PRN IV NAUSEA/VOMITING Last administered on 02/28/19at 11:51; Admin Dose 4 MG; Start 02/27/19 at 13:00 Bisacodyl (Dulcolax Supp) 10 mg DAILY PRN ME .CONSTIPATION; Start 02/27/19 at 13:00 Naloxone HCl (Narcan) 0.2 mg Q2M PRN IV .RR 8 BREATHS/MIN OR LESS; Start 02/27/19 at 13:00 Hydromorphone HCl (Dilaudid CAFETERIA HELPER) CAFETERIA HELPER to be started in PACU Q4PCA IV Last admin istered on 03/01/19at 09:58; Admin Dose 6 MG; Start 02/27/19 at 13:00 Acetaminophen/ Hydrocodone Bitart ([place] (10/325)) 1 tab Q4H PRN PO .PAIN 1-5; Start 03/02/19 at 14:00 Acetaminophen/ Hydrocodone Bitart ([place] (10/325)) 2 tab Q4H PRN PO .PAIN 6-10; Start 03/02/19 at 14:00 Hydromorphone HCl (Dilaudid) 0.2 mg Q1H PRN IV .BREAKTHROUGH PAIN; Start 03/02/19 at 10:00 Ondansetron HCl (Zofran Inj) 4 mg Q6H PRN IV NAUSEA/VOMITING; Start 02/28/19 at 11:00 Bisacodyl (Dulcolax Supp) 10 mg DAILY PRN ME .CONSTIPATION; Start 02/28/19 at 11:00 Docusate Sodium (Colace) 100 mg BID PO Last administered on 03/02/19at 09:06; Admin Dose 100 MG; Start 02/28/19 at 21:00 Magnesium Hydroxide (Milk Of Mag) 30 ml HS PRN PO .CONSTIPATION/DYSPEPSIA Last administered on 03/02/19at 09:09; Admin Dose 30 ML; Start 02/28/19 at 11:00 Acetaminophen (Tylenol Tab) 650 mg Q4H PRN PO CHAVEZ OR TEMP GREATER THAN 101.3F; Start 02/28/19 at 11:00 Cyclobenzaprine HCl (Flexeril) 10 mg TID PRN PO .MUSCLE SPASMS; Start 02/28/19 at 11:00 Phenol (Cepastat Lozenge) 1 lozenge PRN PRN MT .SORE THROAT; Start 02/28/19 at 11:00 Diphenhydramine HCl (Benadryl) 25 mg Q6H PRN PO .ITCHING; Start 02/28/19 at 11:00 Diphenhydramine HCl (Benadryl) 25 mg Q6H PRN IV .ITCHING; Start 02/28/19 at 11:00 Naloxone HCl (Narcan) 0.2 mg Q2M PRN IV .RR 8 BREATHS/MIN OR LESS; Start 02/28/19 at 11:00 Hydromorphone HCl (Dilaudid CAFETERIA HELPER) CAFETERIA HELPER to be started in PACU Q4PCA IV ; Start 02/28/19 at 11:00; Stop 03/02/19 at 10:00 Miscellaneous Information 1. Hold CAFETERIA HELPER at 1,000... CAFETERIA HELPER IV ; Start 02/28/19 at 11:00 Acetaminophen/ Hydrocodone Bitart ([place] (10/325)) 2 tab ONCE ONCE PO Last administered on 03/02/19at 09:09; Admin Dose 2 TAB; Start 03/02/19 at 09:30; Stop 03/02/19 at 09:31 Miscellaneous Medication (Bystolic) 10 mg DAILY PO Last administered on 03/02/19at 09:06; Admin Dose 10 MG; Start 02/28/19 at 13:30 Pantoprazole (Protonix Tab) 40 mg DAILY PO Last administered on 03/02/19 09:06; Admin Dose 40 MG; Start 02/28/19 at 13:30 Tamsulosin HCl (Flomax) 0.4 mg HS PO Last administered on 03/01/19at 21:13; Admin Dose 0.4 MG; Start 02/28/19 at 21:00 Atorvastatin Calcium (Lipitor) 40 mg DAILY@2100 PO Last administered on 03/01/19at 21:12; Admin Dose 40 MG; Start 03/01/19 at 21:00 Sodium Chloride 1,000 ml @ 125 mls/hr Q8H IV Last administered on 03/02/19at 05:07; Admin Dose 125 MLS/HR; Start 02/28/19 at 14:00 LARA SUAZO MD March 02, 2019 09:21
[2019-03-02] MEDS ORDERED: HYDROCODONE/APAP (10/325) TAB PO ONE (09:30)
[2019-03-02] MEDS ORDERED: HYDROmorphONE 0.5 MG/0.5 ML SYG IV PRN (10:00)
[2019-03-02] MEDS ORDERED: HYDROCODONE/APAP (10/325) TAB PO PRN ×2 (14:00)
[2019-03-02 14:13] VITALS: BP 104/61; PULSE 70; RESP 18
[2019-03-02] MEDS ORDERED: RIVAROXABAN 10 MG TABLET PO SCH (17:55)
[2019-03-02 20:21] VITALS: BP 108/58; PULSE 77; RESP 20
[2019-03-02] MEDS: TAMSULOSIN (SR) 0.4 MG CAP PO SCH (20:54)
[2019-03-02] MEDS: ATORVASTATIN 40 MG TAB PO SCH (20:56)
--- NOTE | 2019-03-02 22:54 | CONS ---
DATE OF ADMISSION: 02/27/2019 DATE OF CONSULTATION: 03/02/2019 REQUESTING PHYSICIANS: Dr. Sai Ramos and Dr. Martinez Valencia REASON FOR THE CONSULTATION: Penile swelling and difficulty urinating. HISTORY OF PRESENT ILLNESS: This is a 68-year-old male who underwent surgery on his back, anterior- and posterior-approach fusion. The patient postop had an indwelling Lennon catheter and the Lennon cat heter was removed and the patient was noticed to have penile swelling. Therefore, a urological consu ltation was requested. According to the patient, prior to his admission, he has been able to urinate and he has been taking tamsulosin and that has been helping his voiding. PAST MEDICAL HISTORY: Includes an injury to his back in 2016. He underwent surgery at that time, L3 to S1 central decompressive laminectomy and right L4 to L5 microdiskectomy. The patient did improve ; however, he continued to have right footdrop. He then decided to repeat the surgery with Dr. Em hitchcock and that was done in 2 stages, anterior and posterior approaches. The patient has a history of hypertension, hyperlipidemia, history of deep vein thrombosis in the right leg after a right knee art hroscopy and that was complicated by pulmonary embolism, and he was on Xarelto for about 6 months. MEDICATIONS: The patient's medications that he has been on include: 1. Tamsulosin 0.4 mg a day. 2. Pantoprazole 40 mg a day. 3. Livalo 4 mg a day. 4. Bystolic 10 mg a day. 5. Aspirin and that was discontinued 1 week before the surgery. 6. He also is taking irbesartan/hydrochlorothiazide 300/12.5 mg daily. SOCIAL HISTORY: He does not smoke, he does not drink alcohol, but he does use CBD. ALLERGY: HE IS ALLERGIC TO PENICILLIN. PAST SURGICAL HISTORY: As mentioned, L3 to S1 central decompressive laminectomy with right L4 to L5 microdiskectomy, right knee surgery and his recent back surgery. PHYSICAL EXAMINATION: GENERAL: Reveals a 68-year-old male. VITAL SIGNS: His temperature is 98.6, pulse is 70, respiration 18, blood pressure 104/61. HEAD AND NECK: Unremarkable. There is no cervical adenopathy. CHEST: Clear. There is no wheezing. ABDOMEN: Soft. He does have a scar from his recent surgery. GENITALIA: There is some pubic area swelling and that swelling is extending down to the penis. The scrotum has no edema. RECTAL: Examination revealed soft prostate. It did not feel large. EXTREMITIES: The lower extremities are normal and reveal no edema. LABORATORY DATA: The CBC shows a white count of 6.5, hemoglobin 10.6, hematocrit 32.8, platelet coun t is 111,000. BUN is 15, creatinine 1.45, sodium 136, potassium 3.9, chloride 104, CO2 30. Urinalys is showed 2+ occult blood, 1+ sugar. IMPRESSION AND PLAN: Penile edema and that is directly related to his abdominal approach to his spin e, and the retroperitoneal edema from his surgery goes down and in the midline and goes to the scrotu m and penis, and from there, it does not go anywhere. Therefore, the penis swells. However, on the sides, it could go to the thighs and the thighs down to the legs. There is plenty of space for any f luid to go without showing much of edema. The patient also has voided and his postvoid residual has been not significant. Therefore, the recommendation would be to keep the penis elevated on a towel a ll the time and apply some ice bags on it, and if the plan is to discharge him, he may be discharged and he was shown how to keep the penis elevated and put some ice on it. I do thank you for allowing me to help in his care. Dictated By: JASMYN KULKARNI MD BB/PINKY Conf#: [id number] DID#: [id number] CC: MARTINEZ VALENCIA MD;*End*
[2019-03-03 01:34] VITALS: BP 111/60; PULSE 78; RESP 18
[2019-03-03] MEDS: SOD CHLORIDE 0.45% 1,000 ML IV SCH (05:58)
--- NOTE | 2019-03-03 08:09 | DS ---
Date/Time of Note Date/Time of Note DATE: 03/03/19 TIME: 08:08 Discharge Summary Admission/Discharge Info Admit Date/Time February 27, 2019 at 09:36 Discharge Date/Time March 03 Discharge Diagnosis Lumbar fusion Patient Condition: Good Procedures Lumbar fusion Hospital Course The patient underwent anterior lumbar fusion on February 27 and posterior lumbar fusion on February 28. [facility] is subsequently [facility] His postoperative course uncomplicated. By March 03 he was deemed stable for discharge follow-up arranged with the undersigned. His penile and scrotal swelling is due to retroperitoneal edema which should resolve with time. Home Meds Reported Medications Aspirin (Low Dose Aspirin) 81 Mg Tablet.dr, 81 MG PO DAILY, #30 TAB 02/27/19 Pantoprazole* (Protonix*) 40 Mg Tablet.dr, 40 MG PO DAILY, TAB 02/27/19 Tamsulosin Hcl* (Flomax*) 0.4 Mg Cap.er.24h, 0.4 MG PO DAILY, CAP 02/27/19 Irbesartan-Hydrochlorothiazide (Irbesartan-Hydrochlorothiazide) 300-12.5 Mg Tab, 1 EACH PO DAILY, TAB 02/27/19 Pitavastatin Calcium (Livalo) 4 Mg Tablet, 4 MG PO DAILY, TAB 02/27/19 Nebivolol Hcl* (Bystolic*) 10 Mg Tablet, 10 MG PO DAILY, #30 TAB 02/27/19 Discontinued Reported Medications Pitavastatin Calcium (Livalo) 1 Mg Tablet, 1 MG PO DAILY, TAB 12/31/15 Aspirin (Aspirin) 81 Mg Chew, 81 MG PO DAILY, TAB.CHEW 12/31/15 Valsartan-Hydrochlorothiazide (Valsartan-HCTZ) 320-25 Mg Tablet, 1 TAB PO DAILY, #30 TAB 12/31/15 Tamsulosin Hcl* (Tamsulosin Hcl*) 0.4 Mg Cap.er.24h, 0.4 MG PO HS, CAP 12/30/15 Nebivolol* (Bystolic*) 5 Mg Tab, 5 MG PO DAILY, #30 TAB 12/30/15 Amlodipine Besylate* (Amlodipine Besylate*) 10 Mg Tablet, 10 MG PO DAILY, #30 TAB 12/30/15 Primary Care Provider Not On Staff Doctor Pending Labs Laboratory Tests Test 03/02/19 09:30 03/03/19 04:20 Urine Color YELLOW (YELLOW) Urine Clarity CLEAR (CLEAR) Urine pH 6.0 (5.0-9.0) Urine Specific [place] 1.014 (1.003-1.030) Urine Ketones NEGATIVE mg/dL (NEGATIVE) Urine Nitrite NEGATIVE mg/dL (NEGATIVE) Urine Bilirubin NEGATIVE mg/dL (NEGATIVE) Urine Urobilinogen NEGATIVE mg/dL (NEGATIVE) Urine Leukocyte Esterase NEGATIVE Bernabe/ul Urine Microscopic RBC 24 /HPF (0-5) Urine Microscopic WBC 5 /HPF (0-5) Urine Mucus FEW /HPF (NONE SEEN) Urine Hemoglobin 2+ mg/dL (NEGATIVE) Urine Glucose 1+ mg/dL (NEGATIVE) Urine Total Protein 1+ mg/dl (NEGATIVE) White Blood Count 4.9 10^3/ul (4.8-10.8) Red Blood Count 3.63 10^6/ul (4.70-6.10) Hemoglobin 10.0 g/dl (14.0-18.0) Hematocrit 31.3 % (42.0-52.0) Mean Corpuscular Volume 86.2 fl (82.0-101.0) Mean Corpuscular 27.5 pg (29.0-33.0) Hemoglobin Mean Corpuscular 31.9 g/dl (32.0-37.0) Hemoglobin Concent Red Cell Distribution 14.5 % (11.5-14.5) Width Platelet Count 143 10^3/UL (140-415) Mean Platelet Volume 11.0 fl (7.4-10.4) Immature Granulocytes % 0.600 % (0.001-0.429) Neutrophils % 75.0 % (39.0-77.0) Lymphocytes % 11.7 % (15.0-51.0) Monocytes % 7.6 % (0.0-11.0) Eosinophils % 4.9 % (0.0-7.0) Basophils % 0.2 % (0.0-2.0) Nucleated Red Blood Cells 0.0 /100WBC (0.0-0.0) % Immature Granulocytes # 0.030 10^3/ul (0.0-0.031) Neutrophils # 3.7 10^3/ul (1.6-7.5) Lymphocytes # 0.6 10^3/ul (0.8-2.9) Monocytes # 0.4 10^3/ul (0.3-0.9) Eosinophils # 0.2 10^3/ul (0.0-0.5) Basophils # 0.0 10^3/ul (0.0-0.1) Nucleated Red Blood Cells 0.0 10^3/ul (0.0-0.0) # Sodium Level 137 mmol/L (135-144) Potassium Level 3.8 mmol/L (3.5-5.1) Chloride Level 103 mmol/L (97-110) Carbon Dioxide Level 29 mmol/L (21-31) Anion Gap 5 (5-13) Blood Urea Nitrogen 21 mg/dl (7-20) Creatinine 1.40 mg/dl (0.61-1.24) Est Glomerular Filtrat 50 mL/min (>60) Rate mL/min Glucose Level 124 mg/dl (70-220) Calcium Level 7.9 mg/dl (8.4-10.2) Magnesium Level 2.4 mg/dl (1.7-2.5) ERIKA LE MD March 03, 2019 08:09
[2019-03-03] MEDS: PANTOPRAZOLE (EC) 40 MG TAB PO SCH (08:32)
[2019-03-03] MEDS: DOCUSATE SODIUM 100 MG CAP PO SCH (08:32)
[2019-03-03] MEDS: NEBIVOLOL 5 MG TAB PO SCH (08:37)
--- NOTE | 2019-03-03 09:01 | CONS ---
Assessment/Plan Assessment/Plan Hospital Course (Demo Recall) 1. Rosas is now 3 days postop a two-stage anterior posterior lumbar spine surgery and fusion. He is awake and alert. He has been afebrile . He had some swelling of the penis and the scrotum yesterday and was seen by , a urologist who felt that this swelling was related to the surgery. The swelling is much less today. The patient can be discharged to home today. 2. His blood pressure and laboratory tests are acceptable. 3. 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 I recommend that he take Xarelto 10 mg a day for [address] Valencia agrees. I gave him a prescription for Xarelto 10 mg a day for 1 month. He will resume his routine medications and see his PCP as an outpatient. Consultation Date/Type/Reason Admit Date/Time February 27, 2019 at 09:36 Initial Consult Date Type of Consult medicine Date/Time of Note DATE: 03/03/19 TIME: 08:55 24 HR Interval Summary Free Text/Dictation Rosas is awake and alert this morning. He is now 3 days postop a two-stage lumbar spine surgery. He feels well. He says that the swelling around the penis and scrotum has decreased. He is voiding without a problem and he has had several bowel movements. Constitutional: no complaints, improved Exam/Review of Systems Exam Vitals Vital Signs Date Temp Pulse Resp B/P (MAP) Pulse Ox O2 O2 Flow FiO2 Time Delivery Rate 03/03/19 98.2 78 18 111/60 95 01:34 (77) 03/01/19 Nasal 20:01 Cannula 03/01/19 2.0 00:20 Intake and Output 03/02/19 03/02/19 03/03/19 1515:00 23:00 07:00 IntakeIntake Total 625 ml 600 ml 180 ml OutputOutput Total 750 ml BalanceBalance 625 ml 600 ml -570 ml Exam He has a slightly swollen penis and some swelling in the scrotum but less than yesterday. Constitutional: alert Respiratory: clear to auscultation Cardiovascular: regular rate and rhythm Gastrointestinal: soft, non-tender Musculoskeletal: nl extremities to inspection Results Result Diagram: 5/17/19 0420 5/17/19 0420 Results 24hrs Laboratory Tests Test 03/02/19 09:30 03/03/19 04:20 Urine Color YELLOW Urine Clarity CLEAR Urine pH 6.0 Urine Specific [place] 1.014 Urine Ketones NEGATIVE Urine Nitrite NEGATIVE Urine Bilirubin NEGATIVE Urine Urobilinogen NEGATIVE Urine Leukocyte Esterase NEGATIVE Urine Microscopic RBC 24 H Urine Microscopic WBC 5 Urine Mucus FEW A Urine Hemoglobin 2+ H Urine Glucose 1+ H Urine Total Protein 1+ H White Blood Count 4.9 # Red Blood Count 3.63 L Hemoglobin 10.0 L Hematocrit 31.3 L Mean Corpuscular Volume 86.2 Mean Corpuscular Hemoglobin 27.5 L Mean Corpuscular Hemoglobin Concent 31.9 L Red Cell Distribution Width 14.5 Platelet Count 143 # Mean Platelet Volume 11.0 H Immature Granulocytes % 0.600 H Neutrophils % 75.0 Lymphocytes % 11.7 L Monocytes % 7.6 Eosinophils % 4.9 Basophils % 0.2 Nucleated Red Blood Cells % 0.0 Immature Granulocytes # 0.030 Neutrophils # 3.7 Lymphocytes # 0.6 L Monocytes # 0.4 Eosinophils # 0.2 Basophils # 0.0 Nucleated Red Blood Cells # 0.0 Sodium Level 137 Potassium Level 3.8 Chloride Level 103 Carbon Dioxide Level 29 Anion Gap 5 Blood Urea Nitrogen 21 H Creatinine 1.40 H Est Glomerular Filtrat Rate mL/min 50 L Glucose Level 124 Calcium Level 7.9 L Magnesium Level 2.4 Medications Medication Current Medications Bisacodyl (Dulcolax Supp) 10 mg DAILY PRN NM .CONSTIPATION; Start 02/27/19 at 13:00 Naloxone HCl (Narcan) 0.2 mg Q2M PRN IV .RR 8 BREATHS/MIN OR LESS; Start 02/27/19 at 13:00 Hydromorphone HCl (Dilaudid PHOTO [employer]APH[employer] LIBRARIAN) PHOTO GRAPHICS LIBRARIAN to be started in PACU Q4PCA IV Last administered on 03/01/19at 09:58; Admin Dose 6 MG; Start 02/27/19 at 13:00 Acetaminophen/ Hydrocodone Bitart ([place] (10/325)) 1 tab Q4H PRN PO .PAIN 1-5; Start 03/02/19 at 14:00 Acetaminophen/ Hydrocodone Bitart ([place] (10/325)) 2 tab Q4H PRN PO .PAIN 6-10; Start 03/02/19 at 14:00 Hydromorphone HCl (Dilaudid) 0.2 mg Q1H PRN IV .BREAKTHROUGH PAIN; Start 03/02/19 at 10:00 Ondansetron HCl (Zofran Inj) 4 mg Q6H PRN IV NAUSEA/VOMITING; Start 02/28/19 at 11:00 Bisacodyl (Dulcolax Supp) 10 mg DAILY PRN NM .CONSTIPATION; Start 02/28/19 at 11:00 Docusate Sodium (Colace) 100 mg BID PO Last administered on 03/03/19 08:32; Admin Dose 100 MG; Start 02/28/19 at 21:00 Magnesium Hydroxide (Milk Of Mag) 30 ml HS PRN PO .CONSTIPATION/DYSPEPSIA Last administered on 03/02/19 10:54; Admin Dose 30 ML; Start 02/28/19 at 11:00 Acetaminophen (Tylenol Tab) 650 mg Q4H PRN PO CHAVEZ OR TEMP GREATER THAN 101.3F; Start 02/28/19 at 11:00 Cyclobenzaprine HCl (Flexeril) 10 mg TID PRN PO .MUSCLE SPASMS; Start 02/28/19 at 11:00 Phenol (Cepastat Lozenge) 1 lozenge PRN PRN MT .SORE THROAT; Start 02/28/19 at 11:00 Diphenhydramine HCl (Benadryl) 25 mg Q6H PRN PO .ITCHING Last administered on 03/02/19at 10:54; Admin Dose 25 MG; Start 02/28/19 at 11:00 Diphenhydramine HCl (Benadryl) 25 mg Q6H PRN IV .ITCHING; Start 02/28/19 at 11:00 Naloxone HCl (Narcan) 0.2 mg Q2M PRN IV .RR 8 BREATHS/MIN OR LESS; Start 02/28/19 at 11:00 Miscellaneous Information 1. Hold PHOTO GRAPH[employer] LIBRARIAN at 1,000... PH[employer] GRAPH[employer] LIBRARIAN IV ; Start 02/28/19 at 11:00 Miscellaneous Medication (Bystolic) 10 mg DAILY PO Last administered on 03/03/19 08:37; Admin Dose 10 MG; Start 02/28/19 at 13:30 Pantoprazole (Protonix Tab) 40 mg DAILY PO Last administered on 03/03/19 08:32; Admin Dose 40 MG; Start 02/28/19 at 13:30 Tamsulosin HCl (Flomax) 0.4 mg HS PO Last administered on 03/02/19at 20:54; Admin Dose 0.4 MG; Start 02/28/19 at 21:00 Atorvastatin Calcium (Lipitor) 40 mg DAILY@2100 PO Last administered on 03/02/19at 20:56; Admin Dose 40 MG; Start 03/01/19 at 21:00 Sodium Chloride 1,000 ml @ 125 mls/hr Q8H IV Last administered on 03/02/19at 05:07; Admin Dose 125 MLS/HR; Start 02/28/19 at 14:00 Rivaroxaban (Xarelto) 10 mg WITH DINNER PO Last administered on 03/02/19at 17:59; Admin Dose 10 MG; Start 03/02/19 at 17:55 LARA SUAZO MD March 03, 2019 09:01
[2019-03-03 09:12] VITALS: BP 120/58; RESP 18
== END 2019-03-03 10:53 | disposition home health service (06) | DRG 455 ==
LOC: REC 09:36 → MS1 19:35
PROVIDERS: ADMIT Specialist; ATTEND Specialist
PROC: 0SG30A0 Fusion of Lumbosacral Joint with Interbody Fusion Device, Anterior Approach, Anterior Column, Open Approach (ICD-10-PCS; 2019-02-27)
PROC: 0ST20ZZ Resection of Lumbar Vertebral Disc, Open Approach (ICD-10-PCS; 2019-02-27)
PROC: 0ST40ZZ Resection of Lumbosacral Disc, Open Approach (ICD-10-PCS; 2019-02-27)
PROC: 4A11X4G Monitoring of Peripheral Nervous Electrical Activity, Intraoperative, External Approach (ICD-10-PCS; 2019-02-27)
PROC: 0SG10A0 Fusion of 2 or more Lumbar Vertebral Joints with Interbody Fusion Device, Anterior Approach, Anterior Column, Open Approach (ICD-10-PCS; principal; 2019-02-27 12:00)
PROC: 0SG10K1 Fusion of 2 or more Lumbar Vertebral Joints with Nonautologous Tissue Substitute, Posterior Approach, Posterior Column, Open Approach (ICD-10-PCS; 2019-02-28)
PROC: 0SG30K1 Fusion of Lumbosacral Joint with Nonautologous Tissue Substitute, Posterior Approach, Posterior Column, Open Approach (ICD-10-PCS; 2019-02-28)
PROC: 4A11X4G Monitoring of Peripheral Nervous Electrical Activity, Intraoperative, External Approach (ICD-10-PCS; 2019-02-28)
DX: M51.16 Intervertebral disc disorders with radiculopathy, lumbar region (principal); M51.17 Intervertebral disc disorders with radiculopathy, lumbosacral region; M41.86 Other forms of scoliosis, lumbar region; Q76.49 Other congenital malformations of spine, not associated with scoliosis; M21.371 Foot drop, right foot; I10 Essential (primary) hypertension; E78.5 Hyperlipidemia, unspecified; K21.9 Gastro-esophageal reflux disease without esophagitis; E66.9 Obesity, unspecified; N48.89 Other specified disorders of penis; N40.0 Benign prostatic hyperplasia without lower urinary tract symptoms; Z68.30 Body mass index [BMI] 30.0-30.9, adult; Z86.718 Personal history of other venous thrombosis and embolism; Z86.711 Personal history of pulmonary embolism
CPT/HCPCS: 71045; 72110; 72131; 80048; 81001; 83735; 85025; 86850; 86900; 86901; 86920; 86999; 87086; 88304; 97116; 97162; 97530; J0360; J0690; J1170; J1644; J2001; J2250; J2370; J2405; J2765; J3010; J3370; J3475; J3480; P9045; V2790